=== PATIENT | male | born 1985 | race African-American/Black ===

== ENCOUNTER 2016-12-03 09:04 | Emergency (ER) | payer SELFPAY ==
[2016-12-03] MEDS ORDERED: Ketorolac 60 MG/2 ML SDV IM ONE (09:37)
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
[2016-12-03 09:56] VITALS: BP 133/63
== END 2016-12-03 10:17 | disposition home or self-care (01) ==
LOC: MW.ED 09:04
DX: M54.9 Dorsalgia, unspecified (principal); Y04.0XXA Assault by unarmed brawl or fight, initial encounter
CPT/HCPCS: 96372; 99283; J1885